=== PATIENT | male | born 1960 | race Caucasian/White ===

== ENCOUNTER 2018-05-08 17:19 | Observation (INO) | payer OTHER ==
[2018-05-08] MEDS: morphine 4 MG/ML VIAL IV (18:43)
[2018-05-08] MEDS: ONDANSETRON 4 MG INJ IV (18:43)
[2018-05-08] MEDS: SOD CHLORIDE 0.9% 1,000 ML IV ×2 (18:43→22:17)
[2018-05-08 18:46] LABS: ADD MAN DIFF? NO
[2018-05-08 18:47] LABS: BASOPHIL # 0.1 10^3/ul (0.0-0.1); BASOPHILS % 0.7 % (0.0-2.0); EOSINOPHILS # 0.1 10^3/ul (0.0-0.5); EOSINOPHILS % 1.1 % (0.0-7.0); HEMATOCRIT 45.3 % (42.0-52.0); HEMOGLOBIN 15.5 g/dl (14.0-18.0); LYMPHOCYTES # 2.1 10^3/ul (0.8-2.9); LYMPHOCYTES % 20.5 % (15.0-51.0); MEAN CORPUSCULAR HEMOGLOBIN 29.8 pg (29.0-33.0); MEAN CORPUSCULAR HGB CONC 34.2 g/dl (32.0-37.0); MEAN CORPUSCULAR VOLUME 86.9 fl (82.0-101.0); MEAN PLATELET VOLUME 9.1 fl (7.4-10.4); MONOCYTE # 0.5 10^3/ul (0.3-0.9); NEUTROPHIL # 7.4 10^3/ul (1.6-7.5); NEUTROPHILS % 72.4 % (39.0-77.0); PLATELET COUNT 462 10^3/UL (140-415); RED BLOOD COUNT 5.21 10^6/ul (4.70-6.10); RED CELL DISTRIBUTION WIDTH 12.1 % (11.5-14.5)
[2018-05-08 18:47] LABS: WHITE BLOOD COUNT 10.2 10^3/ul (4.8-10.8)
[2018-05-08 19:07] LABS: ANION GAP 16 (8-16); BLOOD UREA NITROGEN 18 mg/dl (7-20); CALCIUM 10.1 mg/dl (8.4-10.2); CARBON DIOXIDE 24 mmol/L (21-31); CHLORIDE 102 mmol/L (97-110); CREATININE 0.97 mg/dl (0.61-1.24); GLUCOSE 112 mg/dl (70-220); POTASSIUM 4.4 mmol/L (3.5-5.1); SODIUM 138 mmol/L (135-144)
[2018-05-08 19:13] LABS: INR 0.93; PROTIME 12.5 Sec (11.9-14.9)
[2018-05-08 19:14] LABS: PARTIAL THROMBOPLASTIN TIME 30.8 Sec (25.0-35.0)
[2018-05-08 19:18] LABS: TROPONIN-I < 0.012 ng/ml (0.000-0.120)
[2018-05-08] MEDS: HYDROmorphONE 2 MG/ML SYG IV (19:25)
[2018-05-08] MEDS ORDERED: ACETAMINOPHEN 325 MG TAB PO ×2 (21:30)
[2018-05-08] MEDS ORDERED: ONDANSETRON 4 MG INJ IV ×2 (21:30)
[2018-05-08] MEDS ORDERED: DOCUSATE SODIUM 100 MG CAP PO (21:30)
[2018-05-08] MEDS ORDERED: NACL 0.9% 3 ML SYG IV (21:30)
[2018-05-08 22:02] LABS: LACTIC ACID 1.1 mmol/L (0.5-2.0)
[2018-05-08 22:42] LABS: CREATINE KINASE 31 IU/L (23-200)
[2018-05-08] MEDS: KETOROLAC 30 MG INJ IV (22:45)
[2018-05-08 22:55] LABS: CK INDEX 0.7; CK-MB < 0.22 ng/ml (0.0-2.4); TROPONIN-I < 0.012 ng/ml (0.000-0.120)
[2018-05-08] MEDS ORDERED: IBUPROFEN 600 MG TAB PO (23:00)
[2018-05-09 06:51] LABS: CREATINE KINASE 31 IU/L (23-200)
[2018-05-09] MEDS: SOD CHLORIDE 0.9% 1,000 ML IV ×2 (07:06→17:06)
[2018-05-09 07:10] LABS: CK INDEX 0.7; CK-MB < 0.22 ng/ml (0.0-2.4); TROPONIN-I < 0.012 ng/ml (0.000-0.120)
[2018-05-09 09:35] LABS: HEMOGLOBIN A1C 5.5 % (0-5.9)
[2018-05-09 09:42] LABS: CHOL/HDL RATIO 3.9 RATIO; HDL CHOLESTEROL 33 mg/dl (28-71); LDL CHOLESTEROL,CALCULATED 54 mg/dl; TRIGLYCERIDES 216 mg/dl (0-149)
[2018-05-09 09:42] LABS: CHOLESTEROL 130 mg/dl (100-200)
[2018-05-09] MEDS: ENOXAPARIN 40 MG/0.4 ML SYG SC (09:56)
[2018-05-09] MEDS: KETOROLAC 15 MG INJ IV (15:20)
== END 2018-05-09 18:29 | disposition home or self-care (01) ==
LOC: E/R 17:19 → TEL 21:20
DX: R55 Syncope and collapse (principal); R51 Headache
CPT/HCPCS: 36415; 70551; 71045; 80048; 80061; 82550; 82553; 83036; 83605; 84484; 85025; 85610; 85730; 87040; 93005; 96374; 96375; 99285-25; G0378